=== PATIENT | male | born 2000 | race Caucasian/White ===

== ENCOUNTER 2020-08-08 08:08 | Emergency (ER) | payer OTHER ==
[~2020-08-08] VITALS: Ht 175.3 cm; Wt 80.3 kg
[~2020-08-08 08:08] MED LIST: NORCO 5-325 TA1 EACH PO
[2020-08-09] MEDS ORDERED: HYDROCODON-ACE1 EA10 PO (10:53)
[2020-08-09] MEDS ORDERED: CEPHALEXIN500 M1 PO (10:53)
== END 2020-08-08 09:38 | disposition home or self-care (01) ==
LOC: ED 08:08
DX: K42.9 Umbilical hernia without obstruction or gangrene (principal); K21.9 Gastro-esophageal reflux disease without esophagitis; F17.200 Nicotine dependence, unspecified, uncomplicated
CPT/HCPCS: 99283

== ENCOUNTER 2020-08-09 07:16 | Emergency (ER) | payer OTHER ==
[~2020-08-09] VITALS: Ht 175.3 cm; Wt 80.3 kg
--- OUTSIDE RECORDS SUMMARY | 2020-08-09 07:22 | XMS ---
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 Janina VISIT COUNT ([address] [facility] TOTAL 2 NOTE: Visits indicate total known visits. ED/UCC VISIT TRACKING (12 MO.) 08/09/2020 07:17 [facility] TYPE: Emergency COMPLAINT: - ABDOMINAL PAIN 08/08/2020 08:09 [facility] TYPE: Emergency COMPLAINT: - ABD PAIN INPATIENT VISIT TRACKING (12 MO.) No inpatient visits to display in this time frame [email or web address]
[2020-08-09] MEDS ORDERED: HYDROCODON-ACE1 EA10 PO (10:53)
[2020-08-09] MEDS ORDERED: CEPHALEXIN500 M1 PO (10:53)
== END 2020-08-09 11:52 | disposition home or self-care (01) ==
LOC: ED 07:16
DX: L02.216 Cutaneous abscess of umbilicus (principal); L03.316 Cellulitis of umbilicus; K21.9 Gastro-esophageal reflux disease without esophagitis; F17.200 Nicotine dependence, unspecified, uncomplicated
CPT/HCPCS: 74177; 80053; 83605; 85025; 96375; 99284-25; J0696; J1885; J2270; J7030; Q9967

== ENCOUNTER 2023-03-11 09:24 | Emergency (ER) | payer OTHER ==
[~2023-03-11] VITALS: Ht 175.3 cm; Wt 81.1 kg
[~2023-03-11 09:24] MED LIST changes: +CEPHALEXIN500 M1 PO; +HYDROCODON-ACE1 EA10 PO
[2023-03-11] MEDS ORDERED: DICYCLOMINE HCL20 MG PO (10:24)
[2023-03-11 10:40] VITALS: BP 126/74
== END 2023-03-11 10:40 | disposition home or self-care (01) ==
LOC: ED 09:24
DX: K62.5 Hemorrhage of anus and rectum (principal); K21.9 Gastro-esophageal reflux disease without esophagitis; F17.200 Nicotine dependence, unspecified, uncomplicated; Z88.8 Allergy status to other drugs, medicaments and biological substances
CPT/HCPCS: 99283